=== PATIENT | female | born 1995 | race Caucasian/White ===

== ENCOUNTER → 2018-09-27 | Outpatient (CLI) | payer OTHER ==
[2018-09-27 12:12] LABS: ALBUMIN 3.8 g/dL (3.4-5.0); ALBUMIN/GLOBULIN RATIO 0.9 (1.0-1.7); CALCIUM 9.4 mg/dL (8.5-10.1); CREATININE 0.7 mg/dL (0.6-1.0); GFR 103.7; TOTAL BILIRUBIN 0.2 mg/dL (0.2-1.0); TOTAL PROTEIN 8.1 g/dL (6.4-8.2)
[2018-09-28 22:09] LABS: HCV ULTRA QUANT PCR HCV Not Detected IU/mL (.)
== END | disposition home or self-care (01) ==
LOC: LAB 11:14
PROVIDERS: ATTEND Internal Medicine Gastroenterology
DX: K75.9 Inflammatory liver disease, unspecified (principal); R53.83 Other fatigue
CPT/HCPCS: 36415; 80053; 86703; 86706; 87340; 87521

== ENCOUNTER 2018-11-05 11:48 | Emergency (ER) | payer OTHER ==
[~2018-11-05] VITALS: Ht 152.4 cm; Wt 47.9 kg
[2018-11-05 11:50] VITALS: BP 129/74
[2018-11-05] MEDS ORDERED: PRED50TA PO (12:10)
[2018-11-05] MEDS ORDERED: AMOX500T PO (12:10)
--- NOTE | 2018-11-05 12:12 | PHYS DOC ---
Past History Past Medical History: Depression Past Surgical History: Appendectomy Additional Past Surgical Histo: liver biopsy Smoking: Cigarettes Alcohol Use: None Drug Use: None Adult General Chief Complaint Chief Complaint: SORE THROAT HPI HPI Patient is a 23 year old male who presents with sore throat. This is been present for the past several days. Patient reports a fever 104 yesterday. Increased pain with swallowing. 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 Patient reports his swallowing makes things worse. Also noted some nasal congestion. Patient has taken ibuprofen at 845 this morning. Review of Systems Review of Systems Constitutional: Denies chills [] Eyes: Denies change in visual acuity, redness, or eye pain [] HENT: See history of present illness[] Respiratory: Denies cough or shortness of breath [] Cardiovascular: No chest pain or palpitations[] GI: Denies abdominal pain, nausea, vomiting, bloody stools or diarrhea [] : Denies dysuria or hematuria [] Musculoskeletal: Denies back pain or joint pain [] Integument: Denies rash or skin lesions [] Neurologic: Denies headache, focal weakness or sensory changes [] Endocrine: Denies polyuria or polydipsia [] All other systems were reviewed and found to be within normal limits, except as documented in this note. Physical Exam Physical Exam Constitutional: Well developed, well nourished, no acute distress, non-toxic appearance. [] HENT: Normocephalic, atraumatic, bilateral external ears normal, oropharynx moist, enlarged tonsils with exudates, symmetric, uvula is midline, nose normal. [] Eyes: PERRLA, EOMI, conjunctiva normal, no discharge. [] Neck: Normal range of motion, no tenderness, supple, no stridor. [] Cardiovascular:Heart rate is tachycardic with a regular rhythm, no murmur [] Lungs & Thorax: Bilateral breath sounds clear to auscultation [] Abdomen: Bowel sounds normal, soft, no tenderness, no masses, no pulsatile masses. No hepato-or splenomegaly[] Skin: Warm, dry, no erythema, no rash. [] Back: No tenderness, no CVA tenderness. [] Extremities: No tenderness, no cyanosis, no clubbing, ROM intact, no edema. [] Neurologic: Alert and oriented X 3, normal motor function, normal sensory function, no focal deficits noted. [] Psychologic: Affect normal, judgement normal, mood normal. [] EKG EKG [] Radiology/Procedures Radiology/Procedures [] Course & Med Decision Making Course & Med Decision Making Pertinent Labs and Imaging studies reviewed. (See chart for details) Medical decision making: Patient appears to have an exudative pharyngitis, no evidence of mononucleosis, no evidence of purulent tolerance, patient clinically does not appear dehydrated despite the elevated heart rate, she has moist mucous membranes. Do not see the need for IV fluids at this time. [] Dragon Disclaimer Dragon Disclaimer This electronic medical record was generated, in whole or in part, using a voice recognition dictation system. Departure Departure: Impression: Primary Impression: Exudative pharyngitis Disposition: HOME, SELF-CARE Condition: GOOD Referrals: PCP,NO (PCP) Patient Instructions: Viral and Bacterial Pharyngitis Additional Instructions: Drink plenty of fluids. Follow-up with your regular doctor in 2 days. If you do not have regular doctor, list of local clinics will be provided for you. Return to the ER if worsening discomfort, unable to tolerate liquids, or any other concerns. Antibiotics, like amoxicillin, which you have been prescribed, inactivate control pills. Use a second form of protection to prevent until the antibiotic is finished AND you start the next package of control medication after the antibiotic is finished. Scripts Prednisone (PREDNISONE) 50 Mg Tablet 1 TAB PO DAILY for INFLAMMATION, #5 TAB Prov: JAHAIRA CUELLAR DO 11/05/18 Amoxicillin (AMOXICILLIN) 500 Mg Tablet 1 TAB PO TID for pharyngitis, #30 TAB Prov: JAHAIRA CUELLAR DO 11/05/18 JAHAIRA CUELLAR DO Nov 05, 2018 12:12
== END 2018-11-05 12:20 | disposition home or self-care (01) ==
LOC: ER 11:48
DX: J02.9 Acute pharyngitis, unspecified (principal); F17.210 Nicotine dependence, cigarettes, uncomplicated
CPT/HCPCS: 99283

== ENCOUNTER → 2020-05-14 | Outpatient (CLI) | payer OTHER ==
[~2020-05-14] MED LIST: AMOX500T PO; PRED50TA PO
[2020-05-14 14:43] LABS: BASO % 1 % (0-3); EOS % 0 % (0-3); HEMATOCRIT 42.2 % (36.0-47.0); HEMOGLOBIN 14.2 g/dL (12.0-15.5); LYMPH % 12 % (24-48); MEAN CORPUSCULAR HEMOGLOBIN 32 pg (25-35); MEAN CORPUSCULAR HGB CONC 34 g/dL (31-37); MEAN CORPUSCULAR VOLUME 93 fL (79-100); MONO # 0.3 x10^3/uL (0.0-1.1); MONO % 4 % (0-9); NEUT # 6.8 x10^3uL (1.8-7.7); NEUT % 83 % (31-73); PLATELET COUNT 364 x10^3/uL (140-400); RED BLOOD COUNT 4.52 x10^6/uL (3.50-5.40); RED CELL DISTRIBUTION WIDTH 12.7 % (11.5-14.5); WHITE BLOOD COUNT 8.2 x10^3/uL (4.0-11.0)
[2020-05-14 15:02] LABS: ALBUMIN 4.1 g/dL (3.4-5.0); ALBUMIN/GLOBULIN RATIO 1.2 (1.0-1.7); CALCIUM 9.1 mg/dL (8.5-10.1); GFR 67.6; POTASSIUM 3.7 mmol/L (3.5-5.1); TOTAL BILIRUBIN 0.3 mg/dL (0.2-1.0); TOTAL PROTEIN 7.6 g/dL (6.4-8.2)
[2020-05-17 12:07] LABS: HCV ULTRA QUANT PCR HCV Not Detected IU/mL (.)
== END | disposition home or self-care (01) ==
LOC: LAB 14:04
PROVIDERS: ATTEND Family Medicine
DX: Z86.19 Personal history of other infectious and parasitic diseases (principal)
CPT/HCPCS: 36415; 80053; 85025; 85610; 87522

== ENCOUNTER 2021-09-19 18:51 | Emergency (ER) | payer OTHER ==
[~2021-09-19] VITALS: Ht 149.9 cm; Wt 60.8 kg
--- NOTE | 2021-09-19 19:05 | PHYS DOC ---
Past History Past Medical History: Depression Past Surgical History: Appendectomy Additional Past Surgical Histo: liver biopsy Smoking: Cigarettes Alcohol Use: None Drug Use: None Adult General HPI HPI Patient is a 26-year-old female who presents with nasal congestion, and loss of taste for the last 3 days, with a mild dry cough. States several people at work and had similar symptoms. States she took an at home test for Covid today and was positive in 1 to get 1 here to confirm. Also want to work note. States she is able to eat and drink. Denies any recent traumas, travels, fevers, chest pain, shortness of breath, abdominal pain, nausea, vomiting, diarrhea, dysuria, hematuria, blood in the stool. Denies any vaginal bleeding, discharge or pain. States she is 18 weeks , has had a normal ultrasound and is still feeling baby move. Review of Systems Review of Systems Review of systems otherwise unremarkable except noted in HPI Allergies Allergies Allergies Coded Allergies Type Severity Reaction Last Updated Verified No Known Drug Allergies 11/05/18 No Physical Exam Physical Exam Constitutional: Well developed, well nourished, no acute distress, non-toxic appearance. [] HENT: Normocephalic, atraumatic, oropharynx moist, no oral exudates, nose normal. [] Eyes: conjunctiva normal, no discharge. [] Neck: Normal range of motion, no tenderness, supple, no stridor. [] Cardiovascular:Heart rate regular rhythm, no murmur [] Lungs & Thorax: Bilateral breath sounds clear to auscultation [] Abdomen: soft, no tenderness, no masses, no pulsatile masses. [] Skin: Warm, dry, no erythema, no rash. [] Back: no CVA tenderness. [] Extremities: No tenderness, no cyanosis, no clubbing, ROM intact, no edema. [] Neurologic: Alert and oriented X 3, normal motor function, normal sensory function, no focal deficits noted. [] Psychologic: Affect normal, judgement normal, mood normal. [] EKG EKG [] Radiology/Procedures Radiology/Procedures [] Heart Score C/O Chest Pain: No Risk Factors: Risk Factors: DM, Current or recent (<one month) smoker, HTN, HLP, family history of CAD, obesity. Risk Scores: Risk Factors: DM, Current or recent (<one month) smoker, HTN, HLP, family history of CAD, obesity. Course & Med Decision Making Course & Med Decision Making Patient is a 26-year-old female presents with congestion and loss of taste with a positive home Covid test today wanting an official test and a work note Vital signs not concerning. Physical exam noted above. Given Tylenol. Covid swab pending. Chest x-ray not concerning for pneumonia. Discussed all findings with patient. Advised to follow-up as soon as possible with her primary care physician and/or EMERGENCY OPERATOR to update on ED visit. Gave education and quarantine's instructions on Covid and made aware we would call with results. Gave return precautions to the ED. Patient grateful, verbalized understanding and agreed with plan of discharge. [] Dragon Disclaimer Dragon Disclaimer This electronic medical record was generated, in whole or in part, using a voice recognition dictation system. Departure Departure: Impression: Primary Impression: Viral syndrome Additional Impression: Person under investigation for COVID-19 Disposition: HOME / SELF CARE / HOMELESS Condition: GOOD Referrals: NATALIE EMERY MD (PCP) Patient Instructions: Viral Syndrome Additional Instructions: Thanks for coming into the emergency department tonight and allowing us to take care of you. Please read the attached information carefully to go back over some of the things we discussed. Please continue Tylenol, and Benadryl as we d iscussed and as needed. Please update your primary care physician and your EMERGENCY OPERATOR of your ED visit. Please come back with new or concerning symptoms as we discussed. You have been tested for or diagnosed with COVID-19. It is an infection caused by a new type of coronavirus. COVID-19 will cause cold-like or mild flu symptoms in most. It can cause more severe symptoms like problems breathing in some. There is no treatment for COVID-19. The body will clear the infection over time. Self-care will help to ease discomfort. Steps to Take: Self-Care Rest as needed. Healthy habits may help you feel better. Steps include: Choose healthy foods including fruits and vegetables. Drink water throughout the day. Get plenty of sleep each night. If you smoke, try to quit. It may ease breathing. Avoid alcohol. Keep Others Healthy The virus can spread to others. Droplets are released every time you sneeze or cough. The droplets can get into the mouth, nose, or eyes of people near you and lead to infection. To lower the chances of spreading COVID-19 to others: Stay at home until your doctor has said it is safe to leave. If you tested positive this will mean staying isolated until both of the following are true: At least 7 days have passed since the start of illness. You are free of fever for at least 72 hours without the use of medicine. During this time: - Avoid public areas, events, or transportation. Do not return to work or school until your doctor has said it is safe to do so. - Call ahead if you need to go to a medical center. Let them know you may have COVID-19. It will help them guide you where to go. They may also ask you to wear a facemask when you come to the office. - If you call for emergency medical services, let them know you may have COVID-19. While at home: - Try to avoid close contact with others. Stay about 6 feet away. - If possible, spend most of your time in a separate room from others. - Use a face mask if you will be in close contact with others such as sharing a room or vehicle. - Have someone wipe down common surfaces in the home. Use household teacher of the deaf/hard of hearing every day on areas like doorknobs, counters, or sinks. - Cough or sneeze into a tissue. Throw the tissue away right after use. If a tissue is not available, cough or sneeze into your elbow. - Wash your hands often. Wash them after sneezing or coughing. Use soap and water and wash for at least 20 seconds. Alcohol based hand bin cleaner can be used if soap and water is not available. - Do not prepare food for others. Avoid sharing personal items like forks, spoons, or toothbrushes. - Avoid close contact with pets while you are sick. There is no evidence of the virus passing to pets. This is a safety step until more is known about this virus. Isolation can be frustrating. Social interaction can help. Keep in touch with friends and family through phone and tech options. You can still interact with others in your home, just keep a safe distance of about 6 feet. Follow-up: Your doctors office will check in with you to see if there are any changes in your health. You may be asked to keep track of symptoms to share with them. They will also let you know when you are clear to be in public again. Problems to Look Out For: Contact your doctor if your recovery is not going as you expect. Get emergency care if you have problems such as: - Trouble breathing - Nonstop chest pain or pressure - Changes in awareness, confusion, or problems waking - Lips or face have bluish color - Worsening of symptoms If you think you have an emergency, call for emergency medical services right away. As taken from [facility] Problem Qualifiers JAS GIL MD Sep 19, 2021 19:05
[2021-09-19] MEDS ORDERED: ACETAMINOPHEN 500 MG TABLET PO ONE (19:15)
[2021-09-19] MEDS ORDERED: guaiFENesin DM 200MG/20MG 10 ML SYRUP PO ONE (19:15)
[2021-09-19 19:20] VITALS: BP 128/61
--- NOTE | 2021-09-19 20:51 | RAD ---
EXAMINATION: XR CHEST 1V CLINICAL HISTORY: Cough EXAM DATE/TIME: 09/19/2021 7:53 PM COMPARISON: None FINDINGS: Lines, Tubes, and Devices: None. Cardiomediastinal Silhouette: Within normal limits. Lungs and Pleura: No evidence of focal airspace consolidation or pleural effusion. Pulmonary vasculat ure unremarkable. Bones and Soft Tissues: No acute osseous abnormality. IMPRESSION: No evidence of acute cardiopulmonary abnormality. Electronically signed by: Remberto Chávez DO (09/19/2021 8:49 PM) DENISE
== END 2021-09-19 20:22 | disposition home or self-care (01) ==
LOC: ER 18:51
DX: U07.1 COVID-19 (principal); B34.9 Viral infection, unspecified; F17.210 Nicotine dependence, cigarettes, uncomplicated
CPT/HCPCS: 71045; 99284; C9803; U0003

== ENCOUNTER 2022-03-24 17:05 | Emergency (ER) | payer OTHER ==
[~2022-03-24] VITALS: Ht 149.9 cm; Wt 46.5 kg
--- NOTE | 2022-03-24 18:23 | PHYS DOC ---
Past History Past Medical History: Depression (TAD CANTU APRN) Past Surgical History: Appendectomy Additional Past Surgical Histo: liver biopsy (TAD CANTU APRN) Smoking: Cigarettes Alcohol Use: None Drug Use: None (TAD CANTU APRN) General Adult EDM: Chief Complaint: SORE THROAT HPI: HPI: Patient is a 26-year-old female who presents to the emergency department with a 3-day history of sore throat, headache, nausea and a productive cough with clear mucus. Patient denies sick exposures, vomiting, fevers. She has no medical history. Vaccines are up-to-date. (TAD CANTU APRN) Review of Systems: Review of Systems: Constitutional: See HPI HENT: See HPI Respiratory: See HPI GI: See HPI Neurologic: See HPI (TAD CANTU APRN) Allergies: Allergies: Allergies Coded Allergies Type Severity Reaction Last Updated Verified No Known Drug Allergies 03/24/22 No (TAD CANTU APRN) Physical Exam: PE: Constitutional: Well developed, well nourished, no acute distress, non-toxic appearance. [] HENT: Normocephalic, atraumatic, bilateral external ears normal, oropharynx moist, 2+ tonsillar enlargement with erythema, no tonsillar exudate, uvula midline, no trismus or phonation changes, no oral exudates, nose normal. [] Eyes: PERRL, EOMI, conjunctiva normal, no discharge. [] Neck: Normal range of motion, left tonsillar lymphadenopathy supple, no stridor. [] Cardiovascular:Heart rate regular rhythm, no murmur [] Lungs & Thorax: Bilateral breath sounds clear to auscultation [] Abdomen: Bowel sounds normal, soft, no tenderness, no masses, no pulsatile masses. [] Skin: Warm, dry, no erythema, no rash. [] Back: No tenderness, normal range of motion Extremities: No tenderness, no cyanosis, no clubbing, ROM intact, no edema. [] Neurologic: Alert and oriented X 3, normal motor function, normal sensory function, no focal deficits noted. [] Psychologic: Affect normal, judgement normal, mood normal. [] (TAD CANTU APRN) Current Patient Data: Vital Signs: Vital Signs Date Time Temp Pulse Resp B/P (MAP) Pulse Ox O2 Delivery O2 Flow Rate FiO2 5/31/22 18:02 98.2 61 20 132/60 (84) 100 Room Air (TAD CANTU APRN) EKG: EKG: [] (TAD CANTU APRN) Radiology/Procedures: Radiology/Procedures: [] (TAD CANTU APRN) Heart Score: C/O Chest Pain: N/A Risk Factors: Risk Factors: DM, Current or recent (<one month) smoker, HTN, HLP, family history of CAD, obesity. Risk Scores: Score 0 - 3: 2.5% MACE over next 6 weeks - Discharge Home Score 4 - 6: 20.3% MACE over next 6 weeks - Admit for Clinical Observation Score 7 - 10: 72.7% MACE over next 6 weeks - Early Invasive Strategies (TAD CANTU APRN) Course & Med Decision Making: Course & Med Decision Making Pertinent Labs and Imaging studies reviewed. (See chart for details) [] Patient presents to the emergency department for sore throat, headache, productive cough with nausea that started 3 days ago. Patient will be tested for COVID, influenza and strep throat. Strep, COVID and influenza test were negative. Patient's Centor score is 2. She is being discharged home with steroid Dosepak. She is advised to take anti-inflammatory medications, perform warm salt water gargles. I discussed with patient all findings and diagnostic testing as well as the need to follow-up with PCP for further evaluation and treatment or return to the ER if any new or worsening symptoms. Strict return precautions were also discussed at length. Patient voiced understanding and agreement with the plan. Patient is hemodynamically stable at the time of disposition. (TAD CANTU APRN) Course & Med Decision Making Did not see or evaluate patient. Did not discuss patient with WOVEN LABEL DESIGNER. Generally agree with WOVEN LABEL DESIGNER's work-up and disposition per note (JAS GIL MD) Dragon Disclaimer: Dragon Disclaimer: This electronic medical record was generated, in whole or in part, using a voice recognition dictation system. (TAD CANTU APRN) Departure Departure: Impression: Primary Impression: Pharyngitis Qualified Codes: J02.9 - Acute pharyngitis, unspecified Disposition: HOME / SELF CARE / HOMELESS Condition: GOOD Referrals: PCP,NO (PCP) Patient Instructions: Viral Pharyngitis Additional Instructions: You were seen in the emergency department today for sore throat had negative strep, COVID and influenza testing. You are being discharged home with a steroid Dosepak which will help with the inflammation in your throat. Take Tylenol and ibuprofen at home for pain or fevers. You can perform warm salt water gargles. You can take [id number] cough medication as needed. Follow-up with your primary care provider within 2 days for reevaluation. Return to the emergency department if you develop shortness of breath, chest pain, difficulty swallowing or maintaining your secretions, high fevers refractory to treatment, intractable nausea or vomiting. Scripts Methylprednisolone (MEDROL) 4 Mg Tab.ds.pk 1 PKG PO UD for inflammation, #1 PKG 0 Refills Prov: TAD CANTU APRN 03/24/22 TAD CANTU APRN March 24, 2022 18:23 JAS GIL MD March 24, 2022 19:49
[2022-03-24] MEDS ORDERED: IBUPROFEN 600 MG TABLET. PO ONE (19:00)
[2022-03-24] MEDS ORDERED: METH4TAB2 PO (19:17)
[2022-03-24 19:22] LABS: INFLUENZA A PATIENT NEGATIVE (NEGATIVE); INFLUENZA B PATIENT NEGATIVE (NEGATIVE)
[2022-03-24 19:38] VITALS: BP 130/83
== END 2022-03-24 19:39 | disposition home or self-care (01) ==
LOC: ER 17:05
DX: J02.9 Acute pharyngitis, unspecified (principal); R51.9 Headache, unspecified; F17.210 Nicotine dependence, cigarettes, uncomplicated; Z20.822 Contact with and (suspected) exposure to COVID-19
CPT/HCPCS: 87070; 87428; 87880; 99283